=== PATIENT | female | born 1965 | race Caucasian/White ===

== ENCOUNTER → 2017-11-19 11:04 | Outpatient (CLI) | payer OTHER | END | disposition home or self-care (01) | LOC: D.MRI 11:04 | DX: M54.16 Radiculopathy, lumbar region (principal); M54.41 Lumbago with sciatica, right side ==

== ENCOUNTER 2018-01-30 18:11 | Emergency (ER) | payer OTHER ==
[~2018-01-30] VITALS: Ht 165.1 cm; Wt 69.5 kg
[2018-01-30 18:28] VITALS: Ht 165.1 cm; Wt 69.5 kg
[2018-01-30] MEDS ORDERED: NEURONTIN 300300 MG PO (18:30)
[2018-01-30] MEDS ORDERED: COZAAR25 MG PO (18:30)
[2018-01-30] MEDS ORDERED: PRAVACHOL40 MG PO (18:30)
[2018-01-30] MEDS ORDERED: PLAVIX75 MG PO (18:30)
[2018-01-30] MEDS ORDERED: TIROSINT125 MCG PO (18:31)
[2018-01-30] MEDS ORDERED: METOPROLOL TART25 MG PO (18:31)
[2018-01-30 19:20] LABS: BASOPHILS 0.4 % (0-2); EOSINOPHILS 1.2 % (0-7); HEMATOCRIT 39.5 % (36.0-48.0); HEMOGLOBIN 13.7 g/dL (12-16); IMMATURE GRANULOCYTES 0.1 % (0-5); LYMPHOCYTES 22.1 % (15-50); MCH 31.4 pg (26.0-34.0); MCHC 34.7 g/dL (31.0-37.0); MCV 90.6 fL (80.0-100.0); MONOCYTES 7.9 % (2-11); NEUTROPHILS 68.3 % (40-80); PLATELET COUNT 232 10x3/uL (130-400); RBC 4.36 10x6/uL (4.00-5.40); RDW 12.6 % (11.5-14.5); WBC 9.3 10x3/uL (4.8-10.8)
[2018-01-30 19:38] LABS: APPEARANCE CLEAR (CLEAR); BILIRUBIN NEGATIVE (NEGATIVE); COLOR YELLOW (YELLOW); EPITHELIAL CELLS 0-5 /hpf (0-5); GLUCOSE NEGATIVE (NEGATIVE); KETONE NEGATIVE (NEGATIVE); NITRITE NEGATIVE (NEGATIVE); PROTEIN NEGATIVE (NEGATIVE); RED CELLS - URINE 0-5 /hpf (0-5); UROBILINOGEN NORMAL (NORMAL); WHITE CELLS - URINE NSEEN /hpf (0-5)
[2018-01-30 19:49] LABS: ALBUMIN 3.9 g/dL (3.4-5.0); ALKALINE PHOSPHATASE 108 U/L (46-116); ALT (SGPT) 21 U/L (10-68); AMYLASE - SERUM 41 U/L (25-115); BILIRUBIN - TOTAL 0.33 mg/dL (0.2-1.3); CALC OSMOLALITY 274 mosm/kg (275-300); CALCIUM 9.1 mg/dL (8.5-10.1); CARBON DIOXIDE 27.8 mmol/L (21.0-32.0); CHLORIDE - SERUM 102 mmol/L (98-107); CREATININE - SERUM 0.8 mg/dL (0.6-1.3); GLUCOSE 105 mg/dL (74-106); LIPASE 151 U/L (73-393); PROTEIN - SERUM 7.4 g/dL (6.4-8.2); SODIUM 138 mmol/L (136-145); UREA NITROGEN 11 mg/dL (7-18); eGFR NON AFRICAN AMERICAN 79 mL/min (90-120)
[2018-01-30] MEDS ORDERED: SORBITOL4000 ML PO (22:31)
[2018-01-30] MEDS ORDERED: CHRONULAC30 ML PO (22:31)
[2018-01-30] MEDS ORDERED: PERCOCET 7.5/321 TAB PO (22:38)
[2018-01-30 23:11] VITALS: BP 143/67
== END 2018-01-30 23:12 | disposition home or self-care (01) ==
LOC: D.ER 18:11
PROVIDERS: Emergency Medicine
DX: R10.32 Left lower quadrant pain (principal); K86.89 Other specified diseases of pancreas; M54.5 Low back pain; K59.00 Constipation, unspecified; I10 Essential (primary) hypertension; F17.200 Nicotine dependence, unspecified, uncomplicated

== ENCOUNTER → 2018-02-10 07:04 | Outpatient (CLI) | payer OTHER ==
[2018-01-30 18:28] VITALS: BMI 25.5
[~2018-02-10 07:04] MED LIST: CHRONULAC30 ML PO; COZAAR25 MG PO; METOPROLOL TART25 MG PO; NEURONTIN 300300 MG PO; PERCOCET 7.5/321 TAB PO; PLAVIX75 MG PO; PRAVACHOL40 MG PO; SORBITOL4000 ML PO; TIROSINT125 MCG PO
== END | disposition home or self-care (01) ==
LOC: D.MRI 07:04
DX: K86.9 Disease of pancreas, unspecified (principal)

== ENCOUNTER → 2018-05-30 15:48 | Outpatient (CLI) | payer OTHER ==
[2018-01-30 18:28] VITALS: BMI 25.5
[2018-05-30 17:20] LABS: CHOL - HDL RATIO 6.2 ratio (2.3-4.1); LDL-HDL RATIO 3.7 ratio (1.5-3.5)
== END | disposition home or self-care (01) ==
LOC: D.LABREF 15:48
PROVIDERS: ATTEND Internal Medicine Cardiovascular Disease
DX: I25.10 Atherosclerotic heart disease of native coronary artery without angina pectoris (principal)

== ENCOUNTER → 2018-06-30 08:36 | Outpatient (CLI) | payer OTHER ==
[2018-01-30 18:28] VITALS: BMI 25.5
== END | disposition home or self-care (01) ==
LOC: D.RAD 08:36
PROVIDERS: ATTEND Internal Medicine Gastroenterology
DX: R13.10 Dysphagia, unspecified (principal); R14.3 Flatulence; R14.0 Abdominal distension (gaseous)

== ENCOUNTER → 2018-09-03 07:35 | Outpatient (CLI) | payer OTHER ==
[2018-01-30 18:28] VITALS: BMI 25.5
== END | disposition home or self-care (01) ==
LOC: D.US 08-13 10:00
PROVIDERS: ATTEND Internal Medicine Cardiovascular Disease
DX: I25.10 Atherosclerotic heart disease of native coronary artery without angina pectoris (principal)

== ENCOUNTER → 2018-09-19 13:25 | Outpatient (CLI) | payer OTHER ==
[2018-01-30 18:28] VITALS: BMI 25.5
== END | disposition home or self-care (01) ==
LOC: D.CT 13:25
PROVIDERS: ATTEND Internal Medicine Cardiovascular Disease
DX: I65.29 Occlusion and stenosis of unspecified carotid artery (principal); R93.89 Abnormal findings on diagnostic imaging of other specified body structures

== ENCOUNTER → 2018-11-05 10:35 | Outpatient (CLI) | payer OTHER ==
[2018-01-30 18:28] VITALS: BMI 25.5
--- NOTE | ~2018-11-05 | ST ---
PATIENT:IBETH PLATA MEDICAL RECORD: [id number] SEX: F LOCATION:[facility] ORDER #: ADMISSION DATE: 11/05/18 AGE OF PATIENT: 53 REFERRING PHYSICIAN: INTERPRETING PHYSICIAN: ELLEN PETERSEN MD DATE OF SERVICE: 11/05/2018 PROCEDURE: Nuclear stress test. INDICATION: Angina, coronary artery disease, hypertension, and hyperlipidemia. She was exercised on standard Michael protocol for 10 minutes achieving greater than 85% maximum target heart rate response with 27 mCi of sestamibi injected at peak stress, 9 mCi used previously for rest images. FINDINGS: Gated SPECT reveals preserved ejection fraction at 68% with good wall motion and thickening and brightening throughout all segments. SPECT imaging Cardiolite was used as myocardial fusion agent. There is homogeneous uptake throughout all segments at rest and stress with no evidence of inducible ischemia or previous infarction. OVERALL IMPRESSION: 1. This is a normal nuclear stress test with no evidence of inducible ischemia or previous infarction. 2. Gated SPECT reveals a preserved ejection fraction at 68%. In this patient with ongoing symptomatology, the current scan does not suggest the presence of hemodynamically significant coronary artery disease. Evaluate noncardiac etiology of chest pain. TRANSINT:[id number] Voice Confirmation ID: [id number] DOCUMENT ID: [id number] ELLEN PETERSEN MD CC: KENYA BALL MD [id number] DICTATION DATE: 11/11/18 171 RFID STRATEGIST: 11/12/18 0101 DEP CLI 11/05/18 [facility] [address] [place] [address]
== END | disposition home or self-care (01) ==
LOC: D.HCCARDIO 10:35
PROVIDERS: ATTEND Internal Medicine Interventional Cardiology
DX: I25.10 Atherosclerotic heart disease of native coronary artery without angina pectoris (principal)

== ENCOUNTER 2019-10-12 09:24 | Inpatient (IN) | payer OTHER ==
[~2019-10-12] VITALS: Ht 165.1 cm; Wt 64.4 kg
--- NOTE | ~2019-10-12 | OP ---
PATIENT NAME: IBETH PLATA MEDICAL RECORD: [id number] :63 LOCATION:D. D.2 ADMISSION DATE:10/13/19 SURGEON: KIRSTIN KAMARA MD DATE OF OPERATION: 10/13/2019 PROCEDURES: Left heart catheterization, selective coronary angiography, post-PTCA stent, right femoral artery approach. CATHETERS: A 5-Estonian sheath, 5/4 left and right Usman, 5/4 pig. The procedure was well tolerated. The patient was returned to the craig. Sheath was removed. ExoSeal device placed. FINDINGS: Left ventriculography in 30-degree REIS view, normal wall motion and normal systolic function. CORONARY ANATOMY: LEFT MAIN: Left main is free of disease. LAD: Has severe diffuse in-stent restenosis greater than 90%. CIRCUMFLEX: Free of disease. RIGHT CORONARY ARTERY: Free of disease. PLAN: Intervention to the LAD momentarily. DESCRIPTION OF PROCEDURE: A 5-Estonian sheath was exchanged for a 6-Estonian sheath. XB LAD guiding catheter provided good guide catheter support followed by a 300 cm whisper wire was placed across the tightly occluded LAD distal portion of vessel. Pre-deployment balloon was a 2.5 x 20 mm [place] balloon up to 14, then 16 atmospheres. Next, stent deployed was a 3.0 x 18 mm [place] drug-eluting stent up to 14 atmospheres. Final angiography shows excellent resolution of 90% stenosis, no significant residual. NIKOLAI flow was 3 throughout the procedure. Heparin was used during the case. Sheath was closed with ExoSeal device. TRANSINT:[id number] Voice Confirmation ID: [id number] DOCUMENT ID: [id number] KIRSTIN KAMARA MD CC: [id number] DICTATION DATE: 10/13/19 1545 SPORTS SPECIALIST: 10/14/19 0000 DIS IN 10/13/19 [place] [id number] [place] [address]
--- NOTE | ~2019-10-12 | EC ---
PATIENT:IBETH PLATA DATE OF SERVICE: 10/13/19 SEX: F MEDICAL RECORD: [id number] DATE OF : 63 LOCATION:D. D.212 AGE OF PATIENT: 54 ADMISSION DATE: 10/13/19 REFERRING PHYSICIAN: INTERPRETING PHYSICIAN: KIRSTIN KAMARA MD ECHOCARDIOGRAM REPORT ECHO CHARGES 4 ECHO COMPLETE Date: 10/13/19 CLINICAL DIAGNOSIS: ACS ECHOCARDIOGRAPHIC MEASUREMENTS (adult normal given) AC root (d.<3.7cm) 3.1 cm LV Septum d (<1.2 cm> 0.7 cm Valve Excursion 1.9 cm LV Septum (systole) 1.3 cm Left Atria (s.<4.0cm> 2.6 cm LVPW d(<1.2cm) 0.8 cm RV (d.<2.3cm) 2.5 cm LVPW (sytole) 1.0 cm LV diastole(<5.6CM) 4.6 cm MV E-F(>70mm/sec) cm LV systole 3.4 cm LVOT Diameter 1.5 cm MV exc.(>10mm) cm Est.ejection fraction (50-75%) % DOPPLER: LVIT cm/sec A 49 cm/sec E 65 cm/sec LA cm/sec RVSP 27.0 mmHg LVOT 69 cm/sec AOP1/2T m/s Asc. Ao 101 cm/sec RVOT 48 cm/sec RA cm/sec PA 60 cm/sec AV Gradient Peak 4.1 mmHg AV Mean 2.1 mmHg AV Area 1.3 cm MV Gradient Peak 2.8 mmHg MV Mean 1.0 mmHg MV Area cm COMMENTS: Solution Lead: Debra [facility] Hose Seamer: 3 Dr. Davis TAPE# PAC Pericardial Effusion N DATE OF SERVICE: Adequate 2D, color-flow imaging, spectral Doppler, and M-Mode. No LVH. LV internal dimension is normal. Wall motion is normal. EF is greater than or equal to 55%. Aortic valve is tricuspid. No evidence of stenosis by Doppler interrogation. Left atrium is normal. Mitral valve shows no prolapse. Trivial MR. Right-sided chambers are grossly normal. Trivial TR. TRANSINT:[id number] Voice Confirmation ID: [id number] DOCUMENT ID: [id number] ECHOCARDIOGRAM REPORT [id number] IBETH PLATA KIRSTIN KAMARA MD CC: [id number] DICTATION DATE: 10/13/19 1443 WEB SITE MANAGER: 10/13/19 2304 DIS IN 10/13/19 [place] [id number] [place] [id number]
--- NOTE | ~2019-10-12 | HEMODYNAMI ---
PATIENT:IBETH PLATA MEDICAL RECORD: [id number] : 63 LOCATION:[facility] D.[address] [facility]# [id number] ADMISSION DATE: 10/12/19 Generatedon:10/13/201915:28 Patient name: IBETH PLATA Patient #: [id number] SSN: [id number] : 1965 Date of study: 10/13/2019 Page: Of Hemodynamic Procedure Report Patient Data Patient Demographics Procedure consent was obtained First Name: IBETH Gender: Female Last Name: BONI : 1965 Middle Initial: MIKEY Age: 54 year(s) Patient #: [id number] Race: SSN: [id number] Additional ID: [id number] Contact details Address: [address] [place] [address] DRIVE State: [place] City: [place] Zip code: [address] Past Medical History Allergies: No known allergies Admission Admission Data Admission Date: 10/12/2019 Admission Time: 14:16 Arrival Date: 10/13/2019 Arrival Time: 0:00 Admit Source: Other Insurance Payor: Private Room #: D.2122 health insurance [facility] #: [id number] Height (in.): 60 BSA: 1.6 (m2) Height (cm.): 152.4 BMI: 27 (kg/m2) Weight (lbs.): 138.27 Weight (kg.): 62.72 Lab Results Lab Result Date: 10/13/2019 Lab Result Time: 0:00 Biochemistry Name Units Result Min Max BUN mg/dl 10 --(-*--)-- 7 18 CK-MB ng/ml 0.5 --(*---)-- 0 3.6 Creatinine mg/dl 0.9 --(-*--)-- 0.6 1.3 eGFR ml/min 69 *-(----)-- 90 120 NONAFRICAN Troponin l ng/ml 0.017 --(-*--)-- 0 0.06 CBC Name Units Result Min Max Hematocrit % 41.8 -*(----)-- 42 54 Hemoglobin g/dl 14.2 --(*---)-- 13.5 17.5 Procedure Procedure Types Cath Procedure Diagnostic Procedure [facility] w/Coronaries Sedation Charges Moderate Sedation up to 15 minutes PCI Procedure Coronary Stent Coronary Stent Initial Hemochron ACT Test Procedure Description Procedure Date Procedure Date: 10/13/2019 Procedure Start Time: 14:55 Procedure End Time: 15:22 Procedure Staff Name Function Brian Barney MD Performing Physician Andrews Perez RT Monitor Alesha Anderson RT Scrub Gracia Enciso RN Nurse Procedure Data Cath Procedure Fluoroscopy Diagnostic fluoroscopy Total fluoroscopy Time: 5.9 time: 5.9 min min Diagnostic fluoroscopy Total fluoroscopy dose: 373 dose: 373 mGy mGy Contrast Material Contrast Material Type Amount (ml) Isovue 300 103 Entry Location Entry Primary Successful Side Size Upsize Upsize Entry Closure Succes sful Closure Location (Fr) 1 (Fr) 2 (Fr) Remarks Device Remarks Femoral Right 5 Fr 6 Fr Exoseal artery Short Estimated blood loss: 10 ml Diagnostic catheters Device Type Used For End Catheter Placement MULTIPACK JL 4.0 5Fr Procedure catheter MULTIPACK 3DRC 5Fr Procedure catheter MULTIPACK Pigtail 5 Fr Procedure catheter Procedure Complications No complications Procedure Medications Medication Administration Route Dosage 0.9% NaCl I.V. 100 ml/hr Oxygen etCO2 Nasal cannula 2 l/min Lidocaine 2% added to field 20 Heparin Flush Bag added to field 2 bags (1000units/500ml NS) Versed I.V. 2 mg Fentanyl I.V. 50 mcg Heparin Bolus I.V. 5000 units Fentanyl I.V. 50 mcg Hemodynamics Rest BSA: 1.6 (m2) HGB: 14.2 (g/dl) O2 Consumption: Estimated: 150.68 (ml/min) O2 Con sumption indexed: Estimated:94.17 (ml/min/m) Heart Rate: 64 (bpm) Pressure Samples Time Site Value (mmHg) Purpose Heart Use Rate(bpm) 14:56 AO 99/65(70) Snapshot 55 15:00 LV 100/83,7 Snapshot 121 15:12 AO 112/78(94) Snapshot 74 Gradients Valve Time Site Site Mean SEP/DFP Peak To Heart Use 1 2 (mmHg) (sec/min) Peak Rate (mmHg) (bpm) Aortic 15:00 LV AO 73 Snapshots Pre Cath Intra NCS Post Cath Vital Signs Time Heart Resp SPO2 etCO2 NIBP (mmHg) Rhythm Pain Sedation Rate (ipm) (%) (mmHg) Status Level (bpm) 14:43:24 64 18 98 46.7 109/59(78) NSR 0 (11) 10(A) , No pain 14:47:33 68 16 99 34.4 100/56(73) NSR 0 (11) 10(A) , No pain 14:51:37 63 13 98 44.1 106/58(72) NSR 0 (11) 10(A) , No pain 14:55:43 67 14 97 35.9 107/62(84) NSR 0 (11) 10(A) , No pain 14:59:47 67 13 96 29.2 108/67(81) NSR 0 (11) 10(A) , No pain 15:03:53 66 10 97 11.9 112/61(71) NSR 0 (11) 10(A) , No pain 15:07:58 69 14 97 45.6 120/69(90) NSR 0 (11) 10(A) , No pain 15:12:06 73 16 97 40.4 118/73(93) NSR 0 (11) 10(A) , No pain 15:16:08 71 13 98 43.3 134/87(108) NSR 0 (11) 10(A) , No pain 15:20:16 72 18 96 29.1 144/90(114) NSR 0 (11) 10(A) , No pain Medications Time Medication Route Dose Verified Delivered Reason Notes Effectiveness by by 14:49:18 0.9% NaCl I.V. 100 Brian Gracia used for ml/hr [facility] Haris Enciso procedure MD HERNANDEZ 14:49:25 Oxygen etCO2 2 Brian Fariasa used for Nasal l/min [facility] Har[facility] Enciso procedure cannula MD HERNANDEZ 14:49:30 Lidocaine 2% added 20ml Brian Torres for local to vial [facility] anesthetic field MD HENDRIX 14:49:34 Heparin Flush added 2 Brian Brian used for Bag to bags St Haris Barney procedure (1000units/500ml field MD HENDRIX NS) 14:54:25 Versed I.V. 2 mg Brian Gracia for sedation [facility] Haris Enciso MD, RN 14:54:32 Fentanyl I.V. 50 Brian Fagan for sedation mcg [facility] Haris Enciso MD RN 15:00:47 Fentanyl I.V. 50 Brian Fagan for sedation mcg [facility] Haris Enciso MD RN 15:01:46 Heparin Bolus I.V. 5000 Brian Fagan for verif ied units [facility] Haris Enciso anticoagulation with Dr. MD DAVID Davis Procedure Log Time Note 14:27:44 Informed consent obtained and on chart 14:27:54 Diagnostic Cath Status : Urgent 14::51 Lab Result : CK-MB 0.5 ng/ml 14::51 Lab Result : Creatinine 0.9 mg/dl 14::51 Lab Result : BUN 10 mg/dl 14::51 Lab Result : Hemoglobin 14.2 g/dl 14::51 Lab Result : eGFR NONAFRICAN 69 ml/min 14::51 Lab Result : Troponin l 0.017 ng/ml 14::51 Lab Result : Hematocrit 41.8 % 14::54 Arrival Date: 10/13/2019 12:00:00 AM 14:29:56 Patient Height : 60 inches 14:30:00 Andrews Perez RT(R) sent for patient. Start room use. 14:30:00 Patient Weight : 138.27 lbs 14:30:03 Admit Source: Other 14:30:09 Insurance Payor : Private health insurance 14:31:55 Procedure Status Urgent Heart Cath (IP). 14:32:00 Time tracking: Regular hours (M-F 7:00 - 5:00) 14:32:07 Plan of Care:Hemodynamics will remain stable., Cardiac rhythm will remain stable., Comfort level will be maintained., Respiratory function will remain adequate., Patient/ family verbilizes understanding of procedure., Procedure tolerated without complication., Recovers from procedure without complications.. 14:38:14 Patient received from Med II to CCL 1 Alert and oriented. Tansferred to table in Supine position. 14:38:16 Warm blankets applied, and stephan hugger turned on for patient comfort. 14:38:16 Correct patient and procedure confirmed by team. 14:38:17 ECG and BP/O2 sat monitors applied to patient. 14:38:17 Vital chart was started 14:43:27 Baseline sample Acquired. 14:43:30 Rhythm: sinus rhythm 14:43:32 Full Disclosure recording started 14:49:18 0.9% NaCl 100 ml/hr I.V. was administered by Gracia Enciso RN; used for procedure; Verbal order read back and verified. 14:49:25 Oxygen 2 l/min etCO2 Nasal cannula was administered by Gracia Enciso RN; used for procedure; Verbal order read back and verified. 14:49:30 Lidocaine 2% 20ml vial added to field was administered by Brian Barney MD; for local anesthetic; Verbal order read back and verified. 14:49:34 Heparin Flush Bag (1000units/500ml NS) 2 bags added to field was administered by Brian Barney MD; used for procedure; Verbal order read back and verified. 14:50:02 H&P Date Dictated: 10/13/2019 Within 30 days and on chart.. 14:50:05 Pre-procedure instructions explained to patient. 14:50:06 Pre-op teaching completed and patient verbalized understanding. 14:50:08 Family in patients room. 14:50:12 Patient NPO since Midnight. 14:50:18 Patient allergic to No known allergies 14:50:20 Is the patient allergic to Iodine/contrast media? No. 14:50:21 Is patient on blood thinner?Yes 14:50:23 ACC The patient was administered the following blood thiners within the last 24 hours: ACCAspirin, ACCPlavix 14:50:25 Patient diabetic? No. 14:50:28 Previous problem with sedation/anesthesia? No ? 14:50:34 Snore? Yes 14:50:35 Sleep apnea? No 14:50:36 Deviated septum? No 14:50:37 Opens mouth fully? Yes 14:50:38 Sticks out tongue? Yes 14:50:39 Airway obstruction? No ? 14:50:42 Dentures? No ? 14:50:49 Pre procedure: right dorsailis pedis pulse 2+ Normal; easily identifiable; not easily obliterated 14:50:51 Patient pain scale 0/10 .. 14:51:00 IV patent on arrival in right forearm with 0.9% NaCl at [facility] 14:51:02 Lab results completed and on chart. 14:51:07 Risk of Mortality: 0.3 14:51:10 Risk of blood transfusion: 1.5 14:51:13 Risk of CORINA: 2.0 14:51:18 Right groin area was prepped with chlora-prep and draped in sterile fashion 14:51:20 Alarms reviewed by R. N. 14:51:20 Sharps counted by scrub and verified by R.N. 14:51:22 Use device set Femoral Dx 14:51:23 ACIST Syringe (74063) opened to sterile field. 14:51:23 Bag Decanter (2002S) opened to sterile field. 14:51:23 Medline Cath Pack ([id number]) opened to sterile field. 14:51:24 ACIST Hand Control (20468) opened to sterile field. 14:51:24 ACIST Manifold (42966) opened to sterile field. 14:51:25 Tegaderm 4 x 4 (1626W) opened to sterile field. 14:51:27 SHEATH 5FR Pomaria (MOU723) opened to sterile field. 14:51:28 EMERALD Guide Wire (034-125) opened to sterile field. 14:51:29 DIAGNOSTIC Multipack 5Fr catheter set (CD5719) opened to sterile field. 14:53:58 Physician arrived 14:53:59 --------ALL STOP TIME OUT------ 14:53:59 Final Timeout: patient, procedure, and site verified with staff and physician. All members of the team are in agreement. 14:54:01 Right groin site verified by team. 14:54:05 Fire Safety Assessment: A--An alcohol-based skin anteseptic being used preoperatively., C--Open oxygen or nitrous oxide is being used., D--An ESU, laser, or fiber-optic light is being used. 14:54:08 Physical assessment completed. ASA score P 2 - A patient with mild systemic disease as per Brian Barney MD. 14:54:17 2) 60-89 Mildly reduced kidney function, and other findings (as for stage 1) point to kidney disease. 14:54:20 Maximum allowable contrast dose (3.7 X eGFR X 0.75)191 ml. 14:54:24 Sedation plan: IV Moderate Sedation Medication:Versed, Fentanyl 14:54:25 Versed 2 mg I.V. was administered by Gracia Enciso RN; for sedation; Verbal order read back and verified. 14:54:32 Fentanyl 50 mcg I.V. was administered by Gracia Enciso RN; for sedation; Verbal order read back and verified. 14:54:50 Zero performed for pressure channel P1 14:55:16 Procedure started. 14:55:19 Local anesthetic to right femoral artery with Lidocaine 2% by Brian Barney MD.INITIAL ACCESS ONLY 14:55:29 A 5 Fr sheath was inserted into the Right Femoral artery 14:56:17 GUIDE 6FR XBLAD 3.5 catheter ([id number]) opened to sterile field. 14:56:36 A MULTIPACK JL 4.0 5Fr catheter was advanced over the wire and used for Procedure. 14:56:54 LCA angiography performed. 14:57:59 SHEATH 6FR Pomaria (DPB287) opened to sterile field. 14:58:09 WHISPER 300cm guide wire ([id number]) opened to sterile field. 14:58:09 INFLATOR Merit BasixCompak (MW8953) opened to sterile field. 14:58:15 Catheter exchanged over wire. 14:58:24 A MULTIPACK 3DRC 5Fr catheter was advanced over the wire and used for Procedure. 14:59:11 RCA angiography performed. 14:59:12 Catheter exchanged over wire. 14:59:15 A MULTIPACK Pigtail 5 Fr catheter was advanced over the wire and used for Procedure. 14:59:45 Zero performed for pressure channel P1 14:59:56 Zero performed for pressure channel P1 15:00:02 Zero performed for pressure channel P1 15:00:20 LV gram done using REIS 15:00:22 Injector settings: Ml/sec: 10, Volume: 20, 15:00:23 LV hemodynamics recorded. 15:00:26 EF : 55 % 15:00:47 Fentanyl 50 mcg I.V. was administered by Gracia Enciso RN; for sedation; Verbal order read back and verified. 15:00:48 Catheter removed. 15:00:54 Sheath upsized to a 6 Fr Short. 15:00:56 ACC Pre-intervention NIKOLAI Flow is 3. 15:01:03 Pre PCI Site: [place] pLAD has 80% stenosis. 15:01:09 6 Fr XBLAD 3.5 guide catheter was inserted over the wire 15:01:46 Heparin Bolus 5000 units I.V. was administered by Gracia Enciso RN; for anticoagulation; verified with Dr. Davis Verbal order read back and verified. 15:02:12 WHISPER wire advanced. 15:05:33 Wire advanced across lesion. 15:06:03 Inflate balloon Inflation number: 1 A EMERGE OTW 3.0 x 15 balloon ([id number]) was prepped and advanced across the Prox LAD , then inflated to 10 ABILIO for 0:30 (min:sec) . 15:07:02 Inflation number: 2 The EMERGE OTW 3.0 x 15 balloon ([id number]) was reinflated across the Prox LAD , to 16 ABILIO for 0:30 (min:sec) . 15:08:12 Inflation number: 3 The EMERGE OTW 3.0 x 15 balloon ([id number]) was reinflated across the Prox LAD , to 16 ABILIO for 0:30 (min:sec) . 15:08:54 Balloon removed over the wire. 15:12:52 Place stent Inflation Number: 4 A CONCETTA OTW 3.0 x 18 stent ([id number]) was prepped and advanced across the Prox LAD . The stent was deployed at 14 ABILIO for 0:45 (min:sec) . 15:12:58 Inflation number: 5 The stent balloon was then re-inflated across the Prox LAD to 14 ABILIO for 0:30 (min:sec) . 15:13:17 ACC Post-intervention NIKOLAI Flow is 3. 15:13:24 Post PCI Site: [place]da[place] pLAD has 0% stenosis. 15:13:27 Stent catheter was removed intact over wire. 15:13:28 Wire removed. 15:13:29 Guide catheter removed. 15:14:19 EXOSEAL 6Fr (EX600) opened to sterile field. 15:14:28 Sheath removed intact; hemostasis achieved with Exoseal to the Right Femoral artery. 15:14:30 Procedure ended.(Physican Out) 15:14:42 Fluoroscopy time 05.90 minutes. 15:14:46 Flurop Dose total: 373 15:14:46 Fluoroscopy dose: 373 mGy 15:15:02 Dose Area Product 39760 mGy/cm. 15:15:07 Contrast amount:Isovue 300 103ml. 15:15:08 Maximum allowable dose exceeded? No. 15:15:09 Sharps counted by scrub and verified by R.N. 15:16:13 Insertion/operative site no bleeding no hematoma. 15:16:21 Post-op/insertion site Right Femoral artery dressed using a 4 x 4 and Tegaderm. 15:16:23 Post right femoral artery:stable, soft, clean and dry 15:16:25 Post Procedure Pulses reassessed and unchanged 15:16:29 Post-procedure physical assessment completed. ASA score P 2 - A patient with mild systemic disease as per Brian Barney MD. 15:16:31 Post procedure rhythm: unchanged. 15:16:35 Estimated blood loss: 10 ml 15:20:20 ACT drawn and resulted at 274 seconds. (normal therapeutic range 180-240 seconds). 15:20:49 Post procedure instruction explained to patient.Patient verbalizes understanding. 15:20:55 Patient needs reinforcement of post procedure teaching. 15:21:24 Procedure type changed to Cath procedure, Diagnostic procedure, LHC, C w/Coronaries, Sedation Charges, Moderate Sedation up to 15 minutes, PCI procedure, Coronary Stent, Coronary Stent Initial, Hemochron ACT Test 15:22:10 Procedure and supply charges have been captured, reviewed, submitted and are correct. 15:22:13 Procedure Complication : No complications 15:22:15 Vital chart was stopped 15:22:20 [facility] Findings: MVD- PCI performed (see procedure note) 15:22:23 Operative report dictated upon procedure completion. 15:22:24 See physician's report for complete and final results. 15:22:27 Report given to PCU. 15:22:30 Patient transfered to PCU with Stretcher. 15:22:32 Procedure ended. 15:22:32 Full Disclosure recording stopped 15:22:39 ACC-PCI Only Patient was given prescriptions, or instructed by Brian Barney MD to start/continue the following medications upon discharge: Aspirin, Plavix 15::41 End room use (Document Last) 15:27:03 End room use (Document Last) 15:27:31 Andrews Perez RT(R) was relieved by Gracia Enciso RN as monitoring person 15:27:31 End room use (Document Last) 15::59 End room use (Document Last) 15:28:22 Gracia Enciso RN was relieved by Andrews Perez RT(R) as monitoring person 15:28:22 End room use (Document Last) Intervention Summary Intervention Notes Time ActionType Lesion and Equipment Action# Pressure Duration Attributes Used 15:06:03 Inflate Prox LAD EMERGE OTW 1 10 00:30 balloon 3.0 x 15 balloon ([id number]) 15:07:02 Reinflate Prox LAD EMERGE OTW 2 16 00:30 balloon 3.0 x 15 balloon ([id number]) 15:08:12 Reinflate Prox LAD EMERGE OTW 3 16 00:30 balloon 3.0 x 15 balloon ([id number]) 15:12:52 Place stent Prox LAD CONCETTA OTW 3.0 4 14 00:45 x 18 stent ([id number]) 15:12:58 Reinflate Prox LAD CONCETTA OTW 3.0 5 14 00:30 stent x 18 stent balloon ([id number]) Device Usage Item Name Manufacture Quantity Catalog Number Hospital Part Current M inimal Lot# / Charge Number Stock Stock Serial# Code ACIST Syringe Acist 1 55913 587811 035358 839082 2 0 (63049) Medical Systems Inc Bag Decanter Microtek 1 2001S 528262 46954 681270 5 (2001S) Medical Inc. Medline Cath Medline 1 [id number] 627169 30362 499679 5 Pack ([id number]) ACIST Hand Acist 1 36178 794225 893365 300040 5 Control Medical (80468) Systems Inc ACIST Acist 1 48019 431113 922797 132151 5 Manifold Medical (01623) Systems Inc Tegaderm 4 x 3M 1 1626W 321444 568806 404031 5 4 (1626W) SHEATH 5FR Terumo 1 OXB830 427434 605927 304611 5 Pomaria (XPQ903) EMERALD Guide Cardinal 1 502-455 295508 722004 633776 5 Wire Health (502-455) DIAGNOSTIC Cardinal 1 DZ1858 134644 76936 148217 3 0 Multipack 5Fr Health catheter set (WY0171) MULTIPACK JL Cardinal 1 963842 5 4.0 5Fr Health catheter SHEATH 6FR Terumo 1 CGY950 791486 057623 618931 4 0 Pomaria (DVC791) WHISPER 300cm Raza 1 [id number] 235181 155555 398831 5 guide wire Vascular (4647946AT) INFLATOR Merit 1 JL2717 399262 102755 154072 1 5 [facility] Medical BasixCompak (JA0567) MULTIPACK Cardinal 1 922710 5 3DRC 5Fr Health catheter MULTIPACK Cardinal 1 183323 5 Pigtail 5 Fr Health catheter EMERGE OTW [place] 1 [id number] 983755 204411 338426 5 [id number] 3.0 x 15 Scientific balloon ([id number]) CONCETTA OTW 3.0 Medtronic 1 [id number] 815228 8032681 696597 5 [id number] x 18 stent ([id number]) EXOSEAL 6Fr Cardinal 1 EX600 013872 326757 712847 1 0 (EX600) Health GUIDE 6FR Cardinal 1 [id number] 222517 271746 432726 1 0 XBLAD 3.5 Health catheter (28686849) Signature Audit [place] Stage Time Signature Unsigned Intra-Procedure 10/13/2019 Andrews Perez 3:27:03 PM RT(R) Intra-Procedure 10/13/2019 Andrews Perez 3:27:59 PM RT(R) Intra-Procedure 10/13/2019 Brian Arenas 3:28:39 PM Haris HENDRIX [facility] [address] [place] [address]
[2019-10-12 09:44] VITALS: BP 122/76
[2019-10-12 10:06] LABS: BASOPHILS 0.6 % (0-2); EOSINOPHILS 1.2 % (0-7); HEMATOCRIT 40.1 % (36.0-48.0); HEMOGLOBIN 13.7 g/dL (12-16); LYMPHOCYTES 22.7 % (15-50); MCH 31.6 pg (26.0-34.0); MCHC 34.2 g/dL (31.0-37.0); MCV 92.4 fL (80.0-100.0); MEAN PLATELET VOLUME 9.3 fL (7.4-10.4); MONOCYTES 5.7 % (2-11); NEUTROPHILS 69.8 % (40-80); RBC 4.34 10x6/uL (4.00-5.40); RDW 12.2 % (11.5-14.5); WBC 6.6 10x3/uL (4.8-10.8)
[2019-10-12 10:08] LABS: PLATELET COUNT 181 10x3/uL (130-400)
[2019-10-12 10:23] LABS: CALC OSMOLALITY 275 mosm/kg (275-300); CALCIUM 8.8 mg/dL (8.5-10.1); CARBON DIOXIDE 26.4 mmol/L (21.0-32.0); CHLORIDE - SERUM 103 mmol/L (98-107); CREATININE - SERUM 0.9 mg/dL (0.6-1.3); GLUCOSE 113 mg/dL (74-106); POTASSIUM - SERUM 3.8 mmol/L (3.5-5.1); SODIUM 138 mmol/L (136-145); UREA NITROGEN 11 mg/dL (7-18); eGFR NON AFRICAN AMERICAN 69 mL/min (90-120)
[2019-10-12 10:30] VITALS: BP 105/61
[2019-10-12 10:40] LABS: ALBUMIN 3.9 g/dL (3.4-5.0); ALKALINE PHOSPHATASE 93 U/L (30-120); ALT (SGPT) 44 U/L (10-68); BILIRUBIN - TOTAL 0.42 mg/dL (0.2-1.3); CKMB 0.7 U/L (0.0-3.6); CREATINE KINASE 76 UL (21-215); MAGNESIUM - SERUM 1.8 mg/dL (1.8-2.4); PROTEIN - SERUM 6.9 g/dL (6.4-8.2)
[2019-10-12 10:42] LABS: TROPONIN-I < 0.017 ng/mL (0.000-0.060)
[2019-10-12 10:59] LABS: APTT 29.8 SECONDS (22.8-39.4); INR 0.94 (0.85-1.17); PROTIME 12.6 SECONDS (11.6-15.0)
[2019-10-12 11:13] VITALS: BP 105/59
[2019-10-12 12:32] VITALS: BP 118/69
[2019-10-12 13:34] VITALS: BP 106/67
[2019-10-12 17:12] LABS: CKMB 0.4 U/L (0.0-3.6); CREATINE KINASE 61 UL (21-215)
[2019-10-12 17:20] LABS: TROPONIN-I < 0.017 ng/mL (0.000-0.060)
[2019-10-12 17:29] VITALS: BP 119/66
[2019-10-12 17:46] LABS: CHOL - HDL RATIO 2.9 ratio (2.3-4.1); LDL-HDL RATIO 1.5 ratio (1.5-3.5)
--- NOTE | 2019-10-12 20:21 | NUR ---
REPORT RECEIVED AND ROUNDING COMPLETE. PATIENT SITTING UP IN BED REQUESTING MORPHINE NOT FOR BACK PAIN BUT FOR CHRONIC HIP AND LEG PAIN. DAUGHTER AT BEDSIDE, PATIENT IS A&O X4 AND SHOWS NO DISTRESS AT THIS TIME. RIGHT FOREARM PIV THAT IS SALINE LOCKED. NO NEEDS VOICED AT THIS TIME. CALL LIGHT WITHIN REACH AND BED IN LOWEST LOCKED POSITION.
[2019-10-12 23:31] LABS: CKMB 0.5 U/L (0.0-3.6); CREATINE KINASE 59 UL (21-215)
[2019-10-12 23:32] LABS: TROPONIN-I < 0.017 ng/mL (0.000-0.060)
[2019-10-13 04:00] VITALS: BP 126/76
--- NOTE | 2019-10-13 07:00 | NUR ---
RECEIVED REPORT. ASSUMED CARE OF PATIENT. CALL LIGHT WITHIN REACH. DENIES CHEST PAIN AT THIS TIME. WHITE BOARD UPDATED, BEDSIDE SHIFT REPORT COMPLETED. PATIENT MADE AWARE SHE CAN EAT A LIGHT AM MEAL AND WILL HAVE HEART CATH THIS AFTERNOON.
[2019-10-13 07:07] LABS: ANION GAP 11.4 mmol/L (8-16); BILIRUBIN - TOTAL 0.48 mg/dL (0.2-1.3); CALCIUM 8.7 mg/dL (8.5-10.1); CARBON DIOXIDE 29.8 mmol/L (21.0-32.0); CREATININE - SERUM 0.9 mg/dL (0.6-1.3); POTASSIUM - SERUM 4.2 mmol/L (3.5-5.1); PROTEIN - SERUM 6.9 g/dL (6.4-8.2)
[2019-10-13 07:17] LABS: BASOPHILS 0.8 % (0-2); EOSINOPHILS 3.2 % (0-7); HEMATOCRIT 41.8 % (36.0-48.0); HEMOGLOBIN 14.2 g/dL (12-16); IMMATURE GRANULOCYTES 0.2 % (0-5); LYMPHOCYTES 31.2 % (15-50); MCH 31.3 pg (26.0-34.0); MCV 92.1 fL (80.0-100.0); MEAN PLATELET VOLUME 9.4 fL (7.4-10.4); NEUTROPHILS 52.6 % (40-80); PLATELET COUNT 166 10x3/uL (130-400); RBC 4.54 10x6/uL (4.00-5.40); RDW 12.4 % (11.5-14.5); WBC 5.1 10x3/uL (4.8-10.8)
--- NOTE | 2019-10-13 07:30 | NUR ---
ICE CHIPS PROVIDED UPON REQUEST.
[2019-10-13 08:37] LABS: CHOL - HDL RATIO 3.1 ratio (2.3-4.1); LDL-HDL RATIO 1.5 ratio (1.5-3.5)
[2019-10-13 10:52] VITALS: BP 106/60
--- NOTE | 2019-10-13 11:50 | NUR ---
PREOP MEDS ADMINISTERED PER DELIVERY ASSOCIATE REQUEST.
[2019-10-13 13:51] VITALS: Ht 165.1 cm; Wt 64.4 kg
--- NOTE | 2019-10-13 14:34 | NUR ---
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 NO DISTRESS NOTED UPON LEAVING UNIT.
--- NOTE | 2019-10-13 15:57 | NUR ---
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 ONE STENT TO THE LAD VIA THE RIGHT GROIN. PERIPHERAL PULSES PATENT. NO HEMATOMA FORMATION TO RIGHT GROIN. DRESSING IS CLEAN DRY AND INTACT. BP 115/70, PULSE 62. CALL LIGHT WITHIN REACH. NO DISTRESS. PATIENT LYING AND CONVERSING WITH FEMALE IN THE ROOM WITH HER. PATIENT MADE AWARE THAT SHE IS ABLE TO DISCHARGE TO HOME AT 2000 TONIGHT.
[2019-10-13 16:03] VITALS: BP 115/70
--- NOTE | 2019-10-13 16:39 | NUR ---
LOG ROLLED PATIENT ONTO BEDPAN AT THIS TIME. NO DISTRESS. PERIPHERAL PULSES PATENT. NO HEMATOMA FORMATION AT RIGHT GROIN. DRESSING CLEAN DRY AND INTACT.
--- NOTE | 2019-10-13 17:02 | NUR ---
medicated for pain to hips and back at this time. no distress.
[2019-10-13] MEDS ORDERED: ASPIRIN325 MG PO (20:15)
--- NOTE | 2019-10-13 21:16 | NUR ---
PATIENT'S PIV REMOVED FROM RIGHT FOREARM CATH INTACT, DISCHARGE INSTRUCTIONS GIVING AND PATIENT STATES UNDERSTANDING, PAPER WORK SIGNED, CATH SITE TO THE RIGHT GROIN C/D/I NO BLEEDING NOTED NOT HARDNESS FELT. WHEELED OUT VIA WHEELCHAIR TO [place] [facility].
== END 2019-10-13 21:20 | disposition home or self-care (01) | DRG 247 ==
LOC: D.ER 09:24 → OBSVTIME 14:16 → D.M2 14:16 → D.ER 18:14 → D.M2 10-13 20:28
PROVIDERS: Family Medicine; Internal Medicine Interventional Cardiology; ADMIT Family Medicine Adult Medicine; ATTEND Family Medicine Adult Medicine
PROC: B2111ZZ Fluoroscopy of Multiple Coronary Arteries using Low Osmolar Contrast (ICD-10-PCS; 2019-10-13)
PROC: B2151ZZ Fluoroscopy of Left Heart using Low Osmolar Contrast (ICD-10-PCS; 2019-10-13)
PROC: 027034Z Dilation of Coronary Artery, One Artery with Drug-eluting Intraluminal Device, Percutaneous Approach (ICD-10-PCS; principal; 2019-10-13 14:30)
PROC: 4A023N7 Measurement of Cardiac Sampling and Pressure, Left Heart, Percutaneous Approach (ICD-10-PCS; 2019-10-13 14:30)
DX: I25.110 Atherosclerotic heart disease of native coronary artery with unstable angina pectoris (principal); T82.855A Stenosis of coronary artery stent, initial encounter; F17.203 Nicotine dependence unspecified, with withdrawal; I10 Essential (primary) hypertension; E78.5 Hyperlipidemia, unspecified; Y83.9 Surgical procedure, unspecified as the cause of abnormal reaction of the patient, or of later complication, without mention of misadventure at the time of the procedure; M54.9 Dorsalgia, unspecified; G89.29 Other chronic pain